=== PATIENT | male | born 1955 | race Caucasian/White ===

== ENCOUNTER → 2016-09-17 | Outpatient (CLI) | payer OTHER ==
[~2016-09-17] MED LIST: AMLO-110 PO; ASCO10003 PO; COEN1CAP40 PO; EPP3/2 IM; FENO48TA9 PO; FLUT0.0529 NAE; FLUT0.15 NAE; GLUCTAB7 PO; GUAN1TAB PO; LYSI100010 PO; METO-452 PO; MONT1TAB3 PO; MULT-1093 PO; OMEP40CA41 PO; SILD100T PO; SUMA100T16 PO; TAMS0.4C38 PO; TOPI50TA16 PO; TPRSR/25 PO; [UNRECOGNIZED DRUG - CODE] PO
--- NOTE | 2016-09-17 13:21 | DIAGNOSTIC IMAGING REPORT ---
CHEST 2 VIEWS ROUTINE HISTORY: Short of breath. Cough. COMPARISON: Chest 06/22/2015. FINDINGS: No pleural effusions. No pneumothorax. The heart is normal in size. Patchy/linear densities the left lung base have progressed. The right lung is clear. IMPRESSION: Patchy/linear densities at the left lung base which have progressed. This could represent atelectasis or pneumonia. One month follow-up is recommended to ensure resolution. Electronically signed by: Vasyl Henderson M.D. 09/17/2016 1:20 PM Dictated Date/Time: 09/17/2016 1:18 PM
== END | disposition home or self-care (01) ==
LOC: C.RAD 12:51
PROVIDERS: ATTEND Physician Assistant
DX: R06.02 Shortness of breath (principal); R05 Cough

== ENCOUNTER → 2016-10-11 | Outpatient (CLI) | payer OTHER ==
--- NOTE | 2016-10-15 08:44 | DIAGNOSTIC IMAGING REPORT ---
CT OF THE CHEST WITHOUT IV CONTRAST CLINICAL HISTORY: ABNORMAL CHEST XRAY COMPARISON STUDY: Chest x-ray dated 09/17/2016 CT DOSE: 266.24 mGy.cm TECHNIQUE: CT of the thorax was performed from the thoracic inlet to the lung bases. Images are reviewed in the axial, sagittal, and coronal planes. IV contrast was not administered for this examination. FINDINGS: Thyroid: Imaged portions of the thyroid gland are normal in appearance. Thoracic aorta: The thoracic aorta is normal in course and caliber, noting standard 3 vessel arch anatomy. Heart: There are minor coronary artery calcifications present. Lungs and pleural spaces: No pleural effusions are visualized. There is no focal pulmonary consolidation. There is a 4 mm solid right upper lobe pulmonary nodule as visualized in image #[id number]. There is a 7 x 4 mm perifissural solid left lower lobe pulmonary nodule as visualized in image #[id number]. There is a 5 x 4 mm solid left lower lobe perifissural nodule as visualized in image #[id number]. Mediastinum: Paratracheal and subcarinal lymph nodes are the upper limits of normal in size. Eugenie: Hilar lymph nodes are the upper limits of normal in size. Axilla: There is no pathologic axillary lymphadenopathy Upper abdomen: There is an indeterminate 26 mm hypodense lesion within the lateral segment of the left lobe of the liver. Additional subcentimeter hepatic hypodensities are also evident. A prior ultrasound performed 09/28/2015 revealed several hepatic cysts, which likely correspond. Skeletal structures: There are no lytic or blastic osseous lesions. IMPRESSION: 1. No evidence of focal pulmonary consolidation 2. Mediastinal and hilar lymph nodes are the upper limits of normal in size 3. Hypodense hepatic lesions, likely corresponding to the hepatic cyst described on the prior ultrasound 4. Bilateral subcentimeter solid pulmonary nodules, the largest of which measures 7 x 4 mm. In a low risk patient, no further follow-up is recommended. In a high risk patient, an optional 12 month follow-up study is recommended. Please see below recommendations. Please refer to below summary of Fleischner criteria recommendations for follow-up of incidental CT nodules (Fernando Hodge, Guidelines for management of small pulmonary nodules detected on CT scans: A statement from the Fleischner Society, Radiology 237: [phone].) SOLID NODULES Solitary nodule size: <6 mm * low risk patients: no follow-up needed * high risk patients: optional CT at 12 months Solitary nodule size: 6-8 mm * low risk patients: follow-up at 6-12 months, then consider further follow-up at 18-24 months * high risk patients: initial follow-up CT at 6-12 months and then at 18-24 months if no change Solitary nodule size: >8 mm * either low or high risk patients - consider follow-up CT at 3 months, and/or CT-PET, and/or biopsy Multiple nodules size: <6 mm * low risk patients: no routine follow-up * high risk patients: optional CT at 12 months Multiple nodules size: 6-8 mm * low risk patients: follow-up at 3-6 months, then consider further follow-up at 18-24 months * high risk patients: follow-up at 3-6 months, then at 18-24 months if no change Multiple nodules size: >8 mm * low risk patients: follow-up at 3-6 months, then consider further follow-up at 18-24 months * high risk patients: follow-up at 3-6 months, then at 18-24 months if no change Note: newly detected indeterminate nodule in persons 35 years of age or older. * low risk patients: minimal or absent history of smoking and/or other known risk factors * high risk patients: history of smoking or of other known risk factors (e.g. first degree relative with lung cancer, or exposure to asbestos, radon, uranium) * if a nodule up to 8 mm is partly solid or is ground glass further follow-up is required after 24 months to exclude possible slow growing adenocarcinoma (RAYMOND) SUBSOLID NODULES Solitary pure ground-glass nodule * nodule size <6 mm - no CT follow-up required * nodule size >=6 mm - follow-up CT at 6-12 months, then every 2 years until 5 years Solitary part-solid nodule * nodule size <6 mm - no CT follow-up required * nodule size >=6 mm - follow-up CT at 3-6 months. If unchanged, and solid component remains <6 mm, then annual follow-up for 5 years Multiple subsolid nodules * nodule size <6 mm - follow-up CT at 3-6 months, consider further follow-up at 2 and 4 years if stable * nodule size >=6 mm - follow-up CT at 3-6 months, subsequent management based on the most suspicious nodule(s) Electronically signed by: Melo Oliver M.D. 10/11/2016 11:43 AM Dictated Date/Time: 10/11/2016 9:19 AM
== END | disposition home or self-care (01) ==
LOC: C.CTS 08:50
PROVIDERS: ATTEND Physician Assistant
DX: R91.8 Other nonspecific abnormal finding of lung field (principal)

== ENCOUNTER 2016-12-12 21:39 | Emergency (ER) | payer OTHER ==
[~2016-12-12] VITALS: Ht 175.3 cm; Wt 73.7 kg
[~2016-12-12 21:39] MED LIST changes: -AMLO-110 PO; -ASCO10003 PO; -COEN1CAP40 PO; -FLUT0.15 NAE; -GLUCTAB7 PO; -LYSI100010 PO; -METO-452 PO; -MULT-1093 PO; -[UNRECOGNIZED DRUG - CODE] PO
[2016-12-12 21:42] VITALS: TEMP 36.6; Ht 175.3 cm; Wt 73.7 kg
[2016-12-12] MEDS ORDERED: GLUCTAB7 PO (22:12)
[2016-12-12] MEDS ORDERED: FLUT0.15 NAE (22:12)
[2016-12-12] MEDS ORDERED: AMLO-110 PO (22:12)
[2016-12-12] MEDS ORDERED: COEN1CAP40 PO (22:12)
[2016-12-12] MEDS ORDERED: METO1TAB66 PO (22:12)
[2016-12-12] MEDS ORDERED: [UNRECOGNIZED DRUG - CODE] PO (22:12)
[2016-12-12] MEDS ORDERED: MULT-1093 PO (22:12)
[2016-12-12] MEDS ORDERED: ASCO10003 PO (22:12)
[2016-12-12] MEDS ORDERED: LYSI100010 PO (22:12)
[2016-12-12] MEDS ORDERED: DiphenhydrAMINE HCL 50 MG/ML VIAL IV STA (22:41)
[2016-12-12] MEDS ORDERED: FAMOTIDINE 20MG/102 ML D5W IV STA (22:41)
--- NOTE | 2016-12-12 22:45 | EMERGENCY ROOM VISIT NOTE ---
History Report prepared by Kerenibrose: Lu Ashraf Under the Supervision of: Dr. Alina Dukes D.O. First contact with patient: 22:15 Chief Complaint: ALLERGIC REACTION Stated Complaint: BEE STING Nursing Triage Summary: Patient got stung by bee at 1830 above belt line on left back. Patient states now his head feels "funny" and left leg feels swollen. History of facial swelling and trouble breathing with prior bee sting. Denies trouble breathing at this time. History of Present Illness The patient is a 61 year old male who presents to the Emergency Room with complaints of an allergic reaction that occurred earlier this evening. He reports he was stung by a white headed hornet at 1830 this evening above his belt line, along his left back. He states the site is "red and itchy", his head feels "funny" and his left leg feels swollen. He tried placing ice on the area with minimal relief. The patient has a history of facial swelling and difficulty breathing with prior bee and hornet stings which is what prompted him to come to the ED this evening. He denies any current difficulty breathing or swelling of his mouth or tongue. He denies any numbness or weakness in his extremities. The patient also denies any nausea, vomiting or abdominal pain. Pt did not use his home epipen. Source of History: patient Onset: 1829 this evening Position: back Quality: other (allergic reaction) Modifying Factors (Relieving): ice Associated Symptoms: No SOB, No nausea, No vomiting, No abdominal pain, No weakness (weakness to the extremities), No numbness (numbness to the extremities ) Review of Systems See HPI for pertinent positives & negatives. A total of 10 systems reviewed and were otherwise negative. Past Medical & Surgical Medical Problems: (1) Essential hypertension (2) Hernia repair Family History No pertinent family history Social History Smoking Status: Former Smoker Alcohol Use: none Drug Use: none Marital Status: Housing Status: lives with family, lives with significant other Occupation Status: employed Current/Historical Medications Scheduled Amino Acids (Aminos), 1 TAB PO DAILY Amlodipine (Norvasc), 5 MG PO DAILY Ascorbic Acid (Vitamin C), 1,000 MG PO DAILY Coenzyme Q10 (Ubidecarenone) (Co Q-10), Unknown Dose PO DAILY Fenofibrate (Tricor), 48 MG PO DAILY Fluticasone Propionate (Nasal) (Flonase Allergy Relief), 1 SPRAY FIFI BID Xuysrrlkvky-Slnlsminswr-Hxb C- (Glucosamine Chondroitin), 1 TAB PO DAILY Guanfacine Hcl (Tenex), 3 MG PO DAILY Lysine Hcl (Lysine), 1,000 MG PO DAILY Metoprolol Succinate (Toprol Xl), 50 MG PO DAILY Montelukast Sodium (Singulair), 10 MG PO HS Multiple Vitamins W/ Minerals (Centrum Silver 50+Men), 1 TAB PO DAILY Omeprazole (Prilosec), 40 MG PO BID Tamsulosin Hcl (Flomax), 0.4 MG PO HS Topiramate (Topamax), 50 MG PO HS Scheduled PRN Epinephrine (Epipen), 0.3 MG IM UD PRN for ALLERGIC REACTION Sildenafil Citrate (Viagra), 100 MG PO UD PRN for Prior to [place] Sumatriptan Succinate (Imitrex), 100 MG PO UD PRN for Migraine Allergies Coded Allergies: BEE STING (Verified Allergy, Severe, ANAPHYLAXIS, 12/12/16) HORNETS AND YELLOW JACKETS "MORE SO THAN OTHERS". Dust (Verified Allergy, Intermediate, ITCHY EYES, SNEEZING, CONGESTION, 12/12/16) Physical Exam Vital Signs Date Time Temp Pulse Resp B/P (MAP) Pulse Ox O2 Delivery O2 Flow Rate FiO2 12/12/16 23:48 64 16 118/70 97 12/12/16 22:57 65 16 152/78 97 Room Air 12/12/16 22:09 97 Room Air 12/12/16 22:06 70 12/12/16 21:42 36.6 81 16 162/89 97 Room Air Physical Exam GENERAL: Patient is alert, well appearing, well nourished, no distress, non- toxic EYE EXAM: normal conjunctiva, PERRL and EOM's grossly intact OROPHARYNX: no exudate, no erythema, lips, buccal mucosa, and tongue normal and mucous membranes are moist, no facial swelling, uvula is midline, no stridor. NECK: supple, no nuchal rigidity, no adenopathy, non-tender LUNGS: Clear to auscultation. Normal chest wall mechanics. No wheezes, rhonchi or rails. HEART: no murmurs, S1 normal and S2 normal ABDOMEN: abdomen soft, non-tender, normo-active bowel sounds, no masses, no rebound or guarding. BACK: Back is symmetrical on inspection and there is no deformity, no midline tenderness, no CVA tenderness. SKIN: Small area of erythema consistent with insect bite on the left lower back , no surrounding erythema. No urticaria, rashes and no bruising UPPER EXTREMITIES: upper extremities are grossly normal. LOWER EXTREMITIES: No pitting edema. NEURO EXAM: Normal sensorium, cranial nerves II-XII grossly intact, normal speech, no gross weakness of arms, no gross weakness of legs. No drift. Finger to nose intact. Gross sensation intact. Medical Decision & Procedures Medications Administered Medications (Trade) Dose Ordered Sig/Austin Route Start Time Stop Time Status Last Admin Dose Admin Diphenhydramine HCl (Benadryl Inj) 25 mg NOW STAT IV 12/12/16 22:41 12/12/16 22:42 DC 12/12/16 22:56 25 MG Famotidine (Pepcid 20mg/100 ml) 20 mg ONE STAT IV 12/12/16 22:41 12/12/16 22:42 DC 12/12/16 22:56 20 MG ED Course 2236: The patient was evaluated in room B10. A complete history and physical exam was performed. 2241: Famotidine 20 mg IV, Benadryl 25 mg IV. 2339: I reevaluated the patient. He is feeling much better. I discussed his results and discharge instructions and he verbalized complete understanding and agreement. Medical Decision Prior records/ancillary studies reviewed. Triage Nursing notes reviewed. The patient's history was concerning for possible allergic reaction. Differential diagnosis: Etiologies such as allergic reaction, anaphylaxis, urticaria, Wei-Philip syndrome, toxic epidermal necrolysis, erythema multiforme, cellulitis, as well as others were entertained. Pt well appearing here. No evidence of anaphylaxis. Vs stable. Small local reaction to left low back. Pt given benadryl/pepcid as stated he felt "funny" all over more than just the site of the bite. No evidence for any evolving reaction. Discussed with pt sx to watch/return for, he verbalized understanding and was agreeable with plan. Medication Reconcilliation Current Medication List: was personally reviewed by me Blood Pressure Screening Patient's blood pressure: Elevated blood pressure Blood pressure disposition: Elevated BP felt to be situational Impression Primary Impression: Insect bite Additional Impression: H/O bee sting allergy Scribe Attestation The scribe's documentation has been prepared under my direction and personally reviewed by me in its entirety. I confirm that the note above accurately reflects all work, treatment, procedures, and medical decision making performed by me. Departure Information Dispostion Home / Self-Care Referrals Annette Anderson PA-C (PCP) Patient Instructions My [facility] Additional Instructions You may take Benadryl up to every 6 hours over the next 48 hours to help prevent any rebound reaction. Please monitor the area of the sting and watch for any additional symptoms. Please keep your EpiPen with you at all times. If you develop any trouble breathing, facial swelling, trouble swallowing, worsening hives, chest pain, wheezing or trouble breathing, or any other new concerns, please return the emergency room. Problem Qualifiers Primary Impression: Insect bite Encounter type: initial encounter Qualified Codes: W57.XXXA - Bitten or stung by nonvenomous insect and other nonvenomous arthropods, initial encounter
[2016-12-12 23:48] VITALS: BP 118/70; PULSE 64; O2SAT 97
== END 2016-12-12 23:44 | disposition home or self-care (01) ==
LOC: C.EDB 21:40
DX: S30.860A Insect bite (nonvenomous) of lower back and pelvis, initial encounter (principal); W57.XXXA Bitten or stung by nonvenomous insect and other nonvenomous arthropods, initial encounter; I10 Essential (primary) hypertension; Z87.891 Personal history of nicotine dependence; Z91.030 Bee allergy status

== ENCOUNTER → 2017-04-25 | Outpatient (CLI) | payer OTHER ==
[~2017-04-25] MED LIST changes: +AMLO-110 PO; +ASCO10003 PO; +COEN1CAP40 PO; -FLUT0.0529 NAE; +FLUT0.15 NAE; +GLUCTAB7 PO; +LYSI100010 PO; +METO-452 PO; +MULT-1093 PO; -TPRSR/25 PO; +[UNRECOGNIZED DRUG - CODE] PO
--- NOTE | 2017-04-26 06:22 | PAP/PSG TECHNICIAN REPORT ---
[facility] Child Psychometrist Polysomnogram Report Study name: None Report date: 04/26/2017 Study date: 04/25/2017 Referring Physician: BJ JORGE PA-C Name: DIPIKA DEAL Interpreting Physician: Bony Fink M.D. Date of : 1955 Child Psychometrist: Mohit Buckley RPS. Sex: Male Age: 61 StudyType: PSG Weight: 164 lbs Height: 61 years, Height 5' 9" BMI: 24.22 Medications: MELOXICAM 7.5 MG, ASPIRIN 81 MG, METOPROLOL SUCCINATE ER 50 MG, TOPAMAX 50 MG, FLONASE, SUMATRIPTAN SUCCINATE 100 MG, NORVASC 5 MG, TRICOR 48 MG, VIAGRA 100 MG, OMEPRAZOLE 40 MG, FLOMAX 0.4 MG, GUANFACINE HCL 1 MG, L-LYSINE 500 MG, MONTELUKAST SODIUM 10 MG Patient History PATIENT HAS HISTORY OF FATIGUE AND DAYTIME SLEEPINESS. HE CURRENTLY HAS A CPAP BUT LATELY HAS BEEN HAVING TROUBLE USING IT OR KEEPING IT ON AT NIGHT. HE IS HERE TODAY FOR A SPLIT-STUDY. ESS = 9 RM 7 Parameters Monitored NPSG: E1-M2, E2-M1, Fp1-M2, Fp2-M1, F3-M2, F4-M2, F4-M1, C3-M2, C4-M2, C4-M1, O1-M2, O2-M2, O2-M1, T3-M2, T4-M1, P3-M2, P4-M1, CHIN1, CHIN2, HR, EKG, Legs, PFLOW, SNOR, FLOW, CFLOW, Tidal Volume, THOR, ABDO, SpO2, PLTH, CPRESS, ETCO2 Wave, ETCO2, pH Sleep Architecture Sleep Stages Time at Lights Off 10:26:06 PM STAGES Time (min.) TST (%) Time at Lights On 5:30:06 AM Wake 19.0 -- Total Recording Time (TRT) 424.50 min. N1 19.0 5 Total Sleep Period (TSP) 423.0 min. N2 310.5 77 Total Sleep Time (TST) 405.0min. N3 0.0 0 Awake Time 19.5 min. REM 75.5 19 Wake after Sleep Onset 18.0 min. Sleep Efficiency (SE) 96 % Sleep Onset Latency (JUDY) 1.0 min. Number of Stage 1 Shifts None Awakenings 16 Stage Changes 61 Number of REM periods 7 REM 75.5 19 REM Latency 84.0 min. NREM 329.5 81 Body Position Analysis Supine Right Left Side Prone Vertical Total Sleep Time (min.) 325.6 18.5 73.1 91.64 0.0 0.0 Total Sleep Time (%) 77% 5% 18% 23 0% N/A% Total Sleep Time REM (min.) 70.0 0.0 5.5 None 0.0 0.0 Total Sleep Time NREM (min.) 243.4 18.5 67.6 None 0.0 0.0 Intermittent Wake (min.) 12.3 1.2 5.5 None 0.0 0.0 Total Sleep Period (%) 77% None None None None None Arousals Myoclonus (PLM) * Events Count Index Events Count Index Spontaneous 10 1 Events Awake (PLMW) 40 126.3 Respiratory 7 1.2 Events Asleep w/ Arousal (PLMA) 21 3.1 PLM 20 3 Events Asleep w/o Arousal (PLMS) 386 57.2 Snoring 2 0 Total Asleep 407 60.3 Total 39 6 Total 447 63 Respiratory Analysis * CA OA MA CH H RERA Total Count 0 1 0 0 31 6 32 Index 0.0 0.1 0.0 0 4.6 1 5.6 Mean Duration 0.0 49.5 0.0 0.00 30.4 20.9 29.4 Longest Duration 0.0 49.5 0.0 0.00 0.0 23.8 49.5 Respiratory Event Summary Total Supine ~Supine Right Left Prone REM NREM Apneas Count 1 1 0 0 0 N/A 0 1 Index 0.1 0 0 0.0 0.0 N/A 0 0 Hypopneas (4% Desat) Count 31 31 0 0 0 N/A 17 14 Index 4.6 5.9 0 0.0 0.0 N/A 13.5 2.5 Apneas & All Hypopneas Count 32 32 0 0 0 N/A 17 15 Index 4.7 6 0 0 0 N/A 13.5 2.7 Respiratory Events (High [employer] Math Teacher+All Hyp+RERA) Count 32 38 0 0 0 N/A 17 15 Index 5.6 7 0 0.0 0.0 N/A 13.5 3.8 Respiratory Related Arousal Count 7 38 0 0 0 N/A 0 8 Index 1.2 2 0 0 0 N/A 0 1 Snoring Analysis Supine Right Left Prone REM NREM Total Snore duration 16.2 min Snores count 736 2 10 N/A 113 635 748 Snore mean duration 1.3 Sec Snores index 141 6 8 N/A 89.8 115.6 110.8 TST with snoring (%) 4.0% Desaturation Event Summary: Minimum %SpO2 Event Count Mean/Min/Max Duration(sec.) Desaturation Index % Time In Bed > 90 31 57.2 / 27.5 / 95.7 4.5 96.7 86 - 90 1 59.5 / 59.5 / 59.5 4.6 3.1 81 - 85 0 N/A 0.0 0.1 76 - 80 0 N/A 0.0 0.1 71 - 75 0 N/A 0.0 0.0 66 - 70 0 N/A 0.0 0.0 61 - 65 0 N/A 0.0 0.0 56 - 60 0 N/A 0.0 0.0 51 - 55 0 N/A 0.0 0.0 < 50 0 N/A 0.0 0.0 Total REM NREM Awake <50% 0.0 min. 0.0 min. 0.0 min. 0.0 min. 51 - 60% 0.0 min. 0.0 min. 0.0 min. 0.0 min. 61 - 70% 0.0 min. 0.0 min. 0.0 min. 0.0 min. 71 - 80% 0.6 min. 0.0 min. 0.1 min. 0.5 min. 81 - 90% 13.3 min. 9.8 min. 2.5 min. 1.0 min. 91 - 100% 410.0 min. 65.7 min. 326.9 min. 17.4 min. Average 94 93 94 94 Minimum SpO2 74 85 74 74 Desaturation Event Index 4.5 13.5 2.7 0.0 # Desat. Events below 89% 8 6 2 0 Time(%) with Saturation below 89% 1.1 0.8 0.1 0.3 Time(min.) with Saturation below 89% 4.8 3.2 0.6 1.1 Time (mins) REM (mins) NREM (mins) % of TST SpO2 Below 90% 17 11 N6 1.7 SpO2 Below 88% 8 0 0 0 Heart Rate Analysis Min (bpm) Max (bpm) Average (bpm) Awake 48 127 58 NREM 48 74 52 REM 49 76 56 Overall 48 76 53 Supplemental O2 Values Minimum O2 level: None Value Start Time End Time Child Psychometrist Comments Mr. Deal slept in the right, left and supine positions. No cardiac arrhythmia noted. Leg movements noted. No bruxism noted. Snoring was noted and scored as a 2 on a scale of 1 through 5. (0=no snoring, 5=snoring loud enough to be heard through a closed door or down the [address] way) Mr. Deal awoke to use the restroom 0 times during the night. Mr. Deal stated I slept as well as I do when I am in my own bed. The final report will be interpreted and signed by a sleep physician. The completed physician report will then be placed in the patient medical record. Therapy (cm H2O) 0 TIB (min.) 424.0 TST (min.) 405.0 Sleep Onset (min.) 1.0 REM Onset From Sleep (min.) 84.0 Sleep Efficiency % 96 Wakefulness (%) 4 Wakefulness (min.) 19.5 NREM 1 (%) 5 NREM 1 (min.) 19.0 NREM 2 (%) 77 NREM 2 (min.) 310.5 NREM 3 (%) 0 NREM 3 (min.) 0.0 REM (%) 19 REM (min.) 75.5 # Arousals 39 Arousal Index 6 # Snore 748 Snore Index 110.8 AHI 4.7 AHI Supine 6 AHI Non-Supine 0 NREM AHI 2.7 REM AHI 13.5 RDI 5.6 # Obstructive Apnea 1 # Central Apnea 0 # Mixed Apnea 0 # Hypopneas 31 RERAs 6 Total Respiratory Events 38 Time Below SpO2 89% (min.) 3.7 Mean NREM SpO2 (%) 94 Mean REM SpO2 (%) 93 Mean Sleep SpO2 (%) 94 Min NREM SpO2 (%) 74 Min REM SpO2 (%) 85 Position Supine (min.) 325.6 Position Non-supine (min.) 91.6 LM Index Sleep 60.3 LM Index NREM 64.3 LM Index REM 42.9 Mean Heart Rate (bpm) 53 Min Heart Rate (bpm) 48
--- NOTE | 2017-04-29 11:51 | POLYSOMNOGRAPH REPORT ---
CLINICAL DATA: 61-year-old male with BMI of 24.2 referred by Annette Anderson PA-C for possible split night study. He has daytime fatigue and sleepiness. He currently is on CPAP but has trouble using it and meeting compliance. His Redford sleepiness score is 9/24. SLEEP ARCHITECTURE: Total sleep period was 423 minutes. Total sleep time was 405 minutes divided between 329.5 minutes of non-REM sleep and 75.5 minutes of REM sleep. Sleep onset latency was 1 minute. REM latency was 84 minutes. Sleep efficiency was 96%. Wake after sleep onset was 18 minutes. Sleep consisted of stage N1 5%, stage N2 77%, and REM 19%. AROUSAL DATA: 39 arousals were recorded for an index of 6 per hour. 20 were due to PLMs. PLM DATA: Significantly elevated limb movements during sleep were noted. There were 407 limb movements during sleep noted for an index of 60 per hour with arousal index of 3 per hour. RESPIRATORY DATA: Borderline sleep apnea/hypopnea was noted. The AHI was 4.7. The RDI was 5.6. There was 1 obstructive apneic episode, 49.5 seconds in duration. There were 31 hypopneic episodes with a mean duration of 30 seconds. There were 6 RERAs. The longest RERA was 23.8 seconds. OXIMETRY DATA: Nocturnal hypoxemia was seen. Oxygen marti was 74%. Mean saturation was 94%. Time below 88% was 8 minutes. EKG: Heart rate ranged from 48-76 beats per minute. CHILDREN'S SERVICE WORKER'S COMMENTS: The patient slept in the right, left, and supine positions. Frequent leg movements were noted throughout the night. Snoring was mild rated 2 on a scale of 1-5. IMPRESSION: Very mild/borderline sleep apnea/hypopnea with an AHI of 4.7 and RDI of 5.6 with mild nocturnal hypoxemia. The patient did not reach split night criteria soon enough to consider CPAP titration. RECOMMENDATIONS: The patient may benefit from weight loss, use of an oral appliance, positional therapy, or use of CPAP. Clinical correlation is needed. [facility]
== END | disposition home or self-care (01) ==
LOC: C.NEUR 21:00
PROVIDERS: ATTEND Physician Assistant
DX: G47.30 Sleep apnea, unspecified (principal)